=== PATIENT | male | born 1965 | race Caucasian/White ===

== ENCOUNTER 2016-08-30 12:44 | Emergency (ER) | payer OTHER ==
--- NOTE | 2016-08-30 13:08 | ERNOTE ---
Lower Extremity HPI - General Lower Extremities Pain: leg: left, foot: left Time Seen by Provider: 08/30/16 12:53 Source: patient Exam Limitations: no limitations - Immun/Allergies/Home Medications Immunizations: IMMUNIZATION HX Immunizations Up to Date No History of Influenza Vaccine No Hx Pneumococcal Vaccination No Allergies/Adverse Reactions: Allergies Allergy/AdvReac Type Severity Reaction Status Date / Time No Known Allergies Allergy Verified 08/30/16 12:51 Home Medications: HOME MEDICATIONS Insulin Glargine,Hum.rec.anlog [Lantus] 50 units SC DAILY #6 vial 01/24/16 [ Last Taken Unknown] Levofloxacin [Levaquin] 500 mg PO DAILY 08/30/16 [Last Taken Unknown] Mupirocin Calcium [Mupirocin] 15 gm TP TID 08/30/16 [Last Taken Unknown] - History of Present Illness Narrative: Patient presents with pain, erythema and swelling of the left foot and left leg for approximately 2 weeks in duration. He has been on levofloxacin for what was believed to be cellulitis over this time. He should also complains of pain in the left calf, is a known diabetic and has diabetic neuropathy with poor healing lesions occasionally on the left foot. Occurred: other - 2 weeks Method of Injury: Reports: no apparent injury Loss of Consciousness: Reports: no loss of consciousness Review of Systems - Review of Systems Constitutional: Present: no symptoms reported, See HPI EYE: Present: no symptoms reported ENT: Present: no symptoms reported Respiratory: Present: no symptoms reported Cardiology: Present: no symptoms reported Gastrointestinal/Abdominal: Present: no symptoms reported Genitourinary: Present: no symptoms reported Musculoskeletal: Present: joint swelling Skin: Present: other - erythema Neurological: Present: no symptoms reported Endocrine: Present: no symptoms reported Hematologic/Lymphatic: Present: no symptoms reported Psych: Present: no symptoms reported - Patient's Past Medical History Patient History - Medical: Diabetes Type 2 Insulin Dependent, Other Patient History - Cardiac/Respiratory: No pertinent hx Patient History - Cancer: No Hx of Cancer Patient History - Surgical Procedures: Other Patient History - Other: None - Family History Father Family History - Cardiac/Respiratory: Hypertension Mother Family History - Medical: No pertinent hx - Social History Living Situations: home Psych History: No pertinent hx Smoking Status: Never smoker Have you smoked in the past 12 months: No - Immunizations Immunizations Up to Date: No Hx Pneumococcal Vaccination: No History of Influenza Vaccine: No Physical Exam - Physical Exam General Appearance: Present: wd/wn, alert, mild distress Eye Exam: Normal inspection: bilateral, PERRL: bilateral Ears, Nose, Throat: Present: normal ENT inspection, H, normal pharynx Neck: Present: normal inspection, nontender Respiratory: Present: no respiratory distress, normal breath sounds, no accessory muscle use, chest nontender, lungs clear Cardiovascular/Chest: Present: regular rate, rhythm, no murmur, normal peripheral pulses Gastrointestinal/Abdominal: Present: normal bowel sounds, nontender, nondistended, soft, no organomegaly Rectal Exam: Present: deferred Back Exam: Present: normal inspection, normal range of motion Extremity Exam: Present: decreased range of motion, pedal edema, calf tenderness , extremity edema Neurological Exam: Present: alert, oriented, normal mood/affect Skin Exam: Present: warm/dry, other - erythema of the left foot Lymphatic Exam: Present: no adenopathy ED Progress - Results and Orders Patient's Lab Results:: I have reviewed the patient's lab results. - Vital Signs Patient's Vital Signs:: I have reviewed the patient's vital signs. Vital Signs: Vital Signs 08/30/16 12:48 Temperature 36.7 C Pulse Rate 76 Respiratory 14 Rate Blood Pressure 139/82 O2 Sat by Pulse 99 Oximetry - CT/Ultrasound CT/Ultrasound Narrative: US of the LE was reviewed - Progress/Reassessment Chief Complaint: Lower Extremity Pain/ Injury Plan - Plan Plan: Patient had a extremity ultrasound which was negative for DVT, he also has a normal white count however his CRP is elevated. I discussed this with Dr. arteaga office and patient will be seen this Sunday at 7:30 and consideration will be given to possibly starting a second antibiotic at that time. Patient will go home and elevate the leg as much as possible and doctor to appear well to determine whether second antibiotic and or a bone scan might be necessary to rule out evolving osteomyelitis Departure Clinical Impression: Poorly controlled type 2 diabetes mellitus Diabetic neuropathy Qualifiers: Diabetes mellitus type: type 2 Diabetes mellitus complication detail: with other neurological complication Qualified Code(s): E11.49 - Type 2 diabetes mellitus with other diabetic neurological complication Cellulitis Qualifiers: Site of cellulitis: extremity Site of cellulitis of extremity: lower extremity Laterality: left Qualified Code(s): L03.116 - Cellulitis of left lower limb - Departure Disposition: Home self-care Condition: Good Instructions: Cellulitis, Adult, [id number], Diabetic Neuropathy, Type 2 Diabetes Mellitus, Adult, [id number] Referrals: Geoff Germain MD [Primary Care Provider] -
[2016-08-30 13:29] LABS: Hemoglobin 12.3 gm/dL (13.5-18.0); Mean Corpuscular Hemoglobin 30.8 pg (27-31); Mean Corpuscular Hgb Conc 34.2 g/dl (32-36); Mean Platelet Volume 8.3 fl (6.0-9.5); Neutrophil # 5.7 K/mm3 (1.3-6.0); Neutrophil % 73.3 % (42-75.0); Platelet Count 264 K/mm3 (150-450); White Blood Count 7.8 K/mm3 (4.0-10.5)
[2016-08-30 13:48] LABS: Albumin * 3.1 gm/dl (3.4-5.0); BUN/Creatinine Ratio 11.1 (9.0-21.6); Bilirubin, Total 0.5 mg/dL (0.0-1.1); CRP 4.4 mg/dL (0.0-0.9); Ca. Corrected For Albumin 9.8 mg/dL (8.4-10.2); Calcium * 9.4 mg/dL (7.9-10.9); Magnesium 1.5 mg/dL (1.2-2.8); Potassium 4.3 mmol/L (3.4-4.6); Total Protein 6.9 gm/dL (6.2-8.2); Uric Acid 4.4 mg/dL (2.6-7.2)
[2016-08-30 13:56] VITALS: BP 131/77
[2016-08-30 14:20] LABS: Anion Gap 15.9 mmol/L (6.8-13.8); Carbon Dioxide 25.4 mmol/L (24-32.6)
== END 2016-08-30 15:01 | disposition home or self-care (01) ==
LOC: ER 12:44
DX: M79.672 Pain in left foot (principal); L03.116 Cellulitis of left lower limb; E11.40 Type 2 diabetes mellitus with diabetic neuropathy, unspecified; Z79.4 Long term (current) use of insulin; Z79.899 Other long term (current) drug therapy